=== PATIENT | female | born 1970 | race Caucasian/White ===

== ENCOUNTER 2016-09-07 13:13 | Emergency (ER) | payer SELFPAY ==
[~2016-09-07] VITALS: Ht 172.7 cm; Wt 93.0 kg
[2016-09-07 13:20] VITALS: BP 122/71
--- NOTE | 2016-09-07 14:42 | PHYS DOC ---
Past Medical History Past Medical History: Anxiety, Asthma, Bipolar, Bronchitis, COPD, Depression, Glaucoma, Other Additional Past Medical Histor: ADD, ADHD Past Surgical History: Cholecystectomy, Other Additional Past Surgical Histo: Right upper lobectomy 2 to pneumonia Additional Information: 06/15 ppd Alcohol Use: None Drug Use: None Adult General Chief Complaint Chief Complaint: FEVER HPI HPI Patient is a 45 year old female who presents with 3 days of dysuria and chills/ sweats. Notes some bilateral low back pain, atraumatic and constant. Pain is constant and achy. No measured fever. She denies cough, dyspnea, n/v, diarrhea. Review of Systems Review of Systems Constitutional: Denies measured fever [] Eyes: Denies change in visual acuity, redness, or eye pain [] HENT: Denies nasal congestion or sore throat [] Respiratory: Denies cough or shortness of breath [] Cardiovascular: No additional information not addressed in HPI [] GI: Denies abdominal pain, nausea, vomiting, bloody stools or diarrhea [] : Denies hematuria [] Musculoskeletal: Denies joint pain [] Integument: Denies rash or skin lesions [] Neurologic: Denies headache, focal weakness or sensory changes [] Endocrine: Denies polyuria or polydipsia [] Allergies Allergies Allergies Coded Allergies Type Severity Reaction Last Updated Verified Penicillins Allergy Severe throat swelling, hives 09/07/16 Yes codeine Allergy Severe throat swelling, hives 09/07/16 Yes Physical Exam Physical Exam Constitutional: Well developed, well nourished, no acute distress, non-toxic appearance. [] HENT: Normocephalic, atraumatic, bilateral external ears normal, oropharynx moist, nose normal. [] Eyes: PERRLA, EOMI. [] Neck: Normal range of motion, supple. [] Cardiovascular:Heart rate regular rhythm [] Lungs & Thorax: Bilateral breath sounds clear to auscultation [] Abdomen: Bowel sounds normal, soft, no tenderness. [] Skin: Warm, dry, no erythema, no rash. [] Back: No tenderness, no CVA tenderness. [] Extremities: No tenderness, ROM intact, no edema. [] Neurologic: Alert and oriented X 3, normal motor function, normal sensory function, no focal deficits noted. [] Psychologic: Affect normal, judgement normal, mood normal. [] Current Patient Data Vital Signs Vital Signs Date Time Temp Pulse Resp B/P Pulse Ox O2 Delivery O2 Flow Rate FiO2 09/07/16 15:00 101.9 101.9 09/07/16 13:20 109 24 122/71 99 Room Air Lab Values Laboratory Tests Test 09/07/16 13:40 Urine Collection Type Unknown Urine Color Yellow Urine Clarity Cloudy Urine pH 6.5 Urine Specific Tiona 1.015 Urine Protein 100mg/dL (NEG-TRACE) Urine Glucose (UA) Negativemg/dL (NEG) Urine Ketones (Stick) Negativemg/dL (NEG) Urine Blood Large (NEG) Urine Nitrite Positive (NEG) Urine Bilirubin Negative (NEG) Urine Urobilinogen Dipstick 1.0mg/dL (0.2 mg/dL) Urine Leukocyte Esterase Large (NEG) Urine RBC 11-20/HPF (0-2) Urine WBC Tntc/HPF (0-4) Urine Squamous Epithelial Cells Mod/LPF Urine Bacteria Many/HPF (0-FEW) Urine Mucus Marked/LPF Course & Med Decision Making Course & Med Decision Making Pertinent Labs and Imaging studies reviewed. (See chart for details) UA shows infection. Will send for culture and treat with cipro. Return precautions given. She and primary care coordinator understand and agree with plan. Dragon Disclaimer Dragon Disclaimer This electronic medical record was generated, in whole or in part, using a voice recognition dictation system. Departure Departure Impression: Primary Impression: Cystitis with hematuria Disposition: HOME, SELF-CARE Condition: STABLE Referrals: NO PCP (PCP) Patient Instructions: Urinary Tract Infection, [id number] Additional Instructions: Take ciprofloxacin for urinary tract infection. Follow up with your primary care doctor. Return for any concerns. Scripts Ciprofloxacin Hcl 250 Mg Tablet1 Tab PO BID #[id number] TAB Prov:Jessica MARSHALL MD 09/07/16 Jessica MARSHALL MD Sep 07, 2016 14:42
[2016-09-07 14:55] LABS: BILIRUBIN,URINE NEGATIVE (NEG); GLUCOSE,URINE NEGATIVE (NEG); NITRITE,URINE POSITIVE (NEG); PH,URINE 6.5; PROTEIN,URINE 100 mg/dL (NEG-TRACE)
[2016-09-07 15:02] LABS: WBC,URINE TNTC /HPF (0-4)
[2016-09-07 15:03] LABS: BACTERIA,URINE MANY /HPF (0-FEW); SQUAMOUS EPITHELIAL CELL,UR MOD /LPF
[2016-09-07] MEDS ORDERED: CIPR250T PO (15:12)
== END 2016-09-07 16:23 | disposition home or self-care (01) ==
LOC: ER 13:13
DX: N30.91 Cystitis, unspecified with hematuria (principal); J44.0 Chronic obstructive pulmonary disease with (acute) lower respiratory infection; J45.909 Unspecified asthma, uncomplicated; F31.9 Bipolar disorder, unspecified; F90.9 Attention-deficit hyperactivity disorder, unspecified type; F17.200 Nicotine dependence, unspecified, uncomplicated; Z88.0 Allergy status to penicillin; Z88.5 Allergy status to narcotic agent
CPT/HCPCS: 81001; 81025; 87086; 87186; 99284